=== PATIENT | male | born 1935 | race Caucasian/White ===

== ENCOUNTER → 2017-11-11 | Outpatient (CLI) | payer MEDICARE ==
[~2017-11-11] MED LIST: AMARYL1 MG PO; AVODART0.5 MG PO; BENTYL20 MG PO; CELEBREX 200 M200 MG PO; LOVASTAT20 PO; LOVENOX PO; NEPHROCAPS SOFT1 CAP PO; NORCO 5-325 TA1 EACH PO; PRILOSEC; PRINZIDE 20-251 EACH PO; TRICOR; TRICOR145 MG PO; VICODIN 5-5001 EACH PO; VITCB500GO PO; ZOFRAN ODT4 MG PO
== END ==
LOC: M.RAD 11:36
DX: M47.812 Spondylosis without myelopathy or radiculopathy, cervical region (principal); M25.78 Osteophyte, vertebrae; M40.294 Other kyphosis, thoracic region; M46.92 Unspecified inflammatory spondylopathy, cervical region; I10 Essential (primary) hypertension; E78.5 Hyperlipidemia, unspecified; Z88.0 Allergy status to penicillin

== ENCOUNTER → 2017-11-18 | Outpatient (CLI) | payer MEDICARE | LOC: M.MRI 12:52 | DX: M47.22 Other spondylosis with radiculopathy, cervical region (principal); M48.02 Spinal stenosis, cervical region; M50.122 Cervical disc disorder at C5-C6 level with radiculopathy; I10 Essential (primary) hypertension; E78.5 Hyperlipidemia, unspecified; E11.9 Type 2 diabetes mellitus without complications; Z96.652 Presence of left artificial knee joint; Z88.0 Allergy status to penicillin ==

== ENCOUNTER → 2019-03-04 | Outpatient (CLI) | payer MEDICARE | LOC: M.ULTRA 10:04 | DX: R30.9 Painful micturition, unspecified (principal); Z90.49 Acquired absence of other specified parts of digestive tract; N40.1 Benign prostatic hyperplasia with lower urinary tract symptoms ==

== ENCOUNTER 2020-05-02 16:31 | Inpatient (IN) | payer MEDICARE ==
[~2020-05-02] VITALS: Ht 172.7 cm; Wt 97.1 kg
[2020-05-02 16:40] VITALS: BP 170/92
[2020-05-02] MEDS ORDERED: MELOXICAM15 MG PO (16:46)
[2020-05-02] MEDS ORDERED: PRANDIN1 MG PO (16:46)
[2020-05-02] MEDS ORDERED: NORVASC 2.5 MG2.5 M1 PO (16:47)
[2020-05-02] MEDS ORDERED: LISINOPRIL10 MG PO (16:47)
[2020-05-02] MEDS ORDERED: TOPROL XL50 MG PO (16:47)
--- NOTE | 2020-05-02 16:54 | NUR ---
DAUGHTER CINTIA CALLED TO CHECK ON PATIENT. GAVE HER UP DATE AND SHE STATED SHE WILL CALL BACK IN AN HOUR.
[2020-05-02 17:02] LABS: HEMATOCRIT 37.6 % (42.0-52.0); HEMOGLOBIN 12.5 gm/dL (14.0-18.0); MCH 30.2 pg (26.0-34.0); MCHC 33.2 g/dL (28.0-37.0); MCV 90.9 fL (80.0-100.0); MPV 8.1 fl. (7.2-11.1); NUCLEATED RBCS 0 /100WBC; PLATELET COUNT* 169 thou/uL (150-400); RBC 4.14 mil/uL (4.50-6.00); RDW-CV 14.1 % (10.5-14.5); WBC 15.9 thou/uL (4.0-11.0)
[2020-05-02 17:11] LABS: CREATININE 1.3 mg/dL (0.6-1.3); POTASSIUM 3.4 mmol/L (3.5-5.1)
[2020-05-02 17:11] LABS: URINE BILIRUBIN NEGATIVE (Negative); URINE BLOOD 1+ (Negative); URINE CLARITY CLEAR; URINE COLOR YELLOW; URINE GLUCOSE-RANDOM 3+ (Negative); URINE KETONES 1+ (Negative); URINE LEUKOCYTES-REFLEX NEGATIVE (Negative); URINE NITRITE-REFLEX NEGATIVE (Negative); URINE PROTEIN 1+ (Negative); URINE SPECIFIC GRAVITY >= 1.030 (1.005-1.030); URINE UROBILINOGEN 0.2 E.U./dl (0.2-1.0)
[2020-05-02 17:22] LABS: ALBUMIN 3.5 g/dL (3.4-5.0); TOTAL BILIRUBIN 0.6 mg/dL (<0.1-1.0); TOTAL PROTEIN 7.4 g/dL (6.4-8.2)
[2020-05-02 17:33] LABS: AMORPHOUS URATES Few /LPF (None Seen); BACTERIA-REFLEX 1-9 Few /HPF (None Seen); FINE GRANULAR CASTS 0-3 Few /LPF (None Seen); HYALINE CASTS 4-10 Moderate /LPF (None Seen); SQUAMOUS 0-3 Few /LPF (0-3)
[2020-05-02 17:34] LABS: URINE RBC 3-10 Few /HPF (0-2); URINE WBC-REFLEX 0-5 Rare /HPF (0-5)
[2020-05-02 17:43] LABS: ABSOLUTE LYMPHOCYTES 0.5 thou/uL (0.8-5.3); ABSOLUTE MONOCYTES 1.4 thou/uL (0.0-1.2)
[2020-05-02 17:44] LABS: OVALOCYTES Occasional; PLATELET ESTIMATE ADEQUATE
--- NOTE | 2020-05-02 18:35 | NUR ---
TALKED TO PT'S DAUGHTER CINTIA AGAIN. PT WANTS HER TO TAKE CARE OF HIS CAT AND BRING UP HIS PHONE CLIENT SUCCESS MANAGER. CINTIA NOTIFIED OF PT'S WISHES.
[2020-05-02 19:58] VITALS: BP 147/74
[2020-05-02 20:00] VITALS: BP 125/79
[2020-05-03] VITALS: BP 149/70
[2020-05-03 04:00] VITALS: BP 166/72
[2020-05-03 04:16] LABS: HEMATOCRIT 31.1 % (42.0-52.0); HEMOGLOBIN 10.7 gm/dL (14.0-18.0); MCH 30.8 pg (26.0-34.0); MCHC 34.5 g/dL (28.0-37.0); MCV 89.3 fL (80.0-100.0); MPV 8.1 fl. (7.2-11.1); RBC 3.48 mil/uL (4.50-6.00); RDW-CV 13.8 % (10.5-14.5); WBC 11.8 thou/uL (4.0-11.0)
[2020-05-03 04:21] LABS: CALCIUM 9.1 mg/dL (8.5-10.1); CREATININE 0.8 mg/dL (0.6-1.3); MAGNESIUM 1.8 mg/dL (1.8-2.4); POTASSIUM 3.3 mmol/L (3.5-5.1)
[2020-05-03 06:14] LABS: INFLUENZA A ANTIGEN Negative (Negative); INFLUENZA B ANTIGEN Negative (Negative)
--- NOTE | 2020-05-03 09:55 | NUR ---
CM SPOKE TO THE PT TO DISCUSS CM ASSESSMENT. PT A&O, AND NORMALLY INDEPENDENT WITH ADL'S. PT RESIDES AT HOME ALONE. PT INFORMS THAT HIS DTRS LIVE NEARBY AND ARE ABLE TO ASSIST HIM IF NEEDED. PT USES A WALKER FOR MOBILITY, BUT ALSO OWNS A POWER WHEELCHAIR AT TIMES INSIDE THE HOME. PT HAS 0 HX OF HH OR SNF. PT INFORMS THAT HE HAS PAST HX OF INPT ARU HERE AT [facility]. CM WILL REMAIN AVAILABLE TO ASSIST AND FOLLOW NEEDED.
[2020-05-03 11:50] VITALS: BP 140/72
--- NOTE | 2020-05-03 14:26 | EKG ---
[place] [address] ELECTROCARDIOGRAM REPORT Name: JENISE RAMEY Room: [address] M.R.#: [id number] Admission: 05/02/20 Attend Phys: Abdulkadir Du, Discharge: Date of : 39 Date of Service: 05/02/20 1643 Report #: [id number] THIS REPORT FOR: //name// [facility] ED Test Date: 2020-05-02 Test Time: 16:43:15 Pat Name: JENISE RAMEY Department: Room: [facility] Gender: M Broom Builder: GREGORY : 1935 Requested By: Elan Cheney Order Number: [id number] MD: Shakeel Williamson Measurements Intervals [place] Rate: 106 P: 38 OR: 196 QRS: -35 QRSD: 96 T: 7 QT: 344 QTc: 457 Interpretive Statements Sinus tachycardia Left axis deviation Abnormal R-wave progression, late transition Baseline wander in lead(s) V2 Compared to ECG 10/19/2009 21:40:45 Left-axis deviation now present Sinus bradycardia no longer present Electronically Signed On 05-03-2020 14:26:43 NAILING MACHINE FEEDER by Shakeel Williamson [email or web address] <ELECTRONICALLY SIGNED> By: Shakeel Williamson MD, [facility] 05/03/20 1426 1643 164 Shakeel Williamson MD, [facility] /EPI
--- NOTE | 2020-05-03 18:24 | NUR ---
PT TRANSFERED FROM 219 TO ROOM 312 VIA W/C AND TECH. ALL BELONGINGS SENT WITH HIM. LUNGS DIMINISHED, HEART TONES REGULAR, EDEMA NOTED IN LOWER LEGS AND FEET. LAST BM TODAY. VOIDING PER URNIAL CLEAR YELLOW URINE. BRUISING NOTED ON SKIN OTHER RETANA INTACT. NO C/O PAIN. CALL LIGHT WITHIN REACH. WILL CONTINUED TO MONITOR.
[2020-05-03 20:00] VITALS: BP 145/67
[2020-05-04 04:30] VITALS: BP 163/86
[2020-05-04 05:58] LABS: MAGNESIUM 1.8 mg/dL (1.8-2.4); POTASSIUM 3.9 mmol/L (3.5-5.1)
--- NOTE | 2020-05-04 07:40 | NUR ---
Alert and oriented x 4. He is very hard of hearing and wears bilat hearing aides. He is voiding adequately per urinal. Vitals are stable. O2 sat on roomair 92-93%. He denies pain. Mg+ and K+ replaced per electrolyte protocol. This am Mg+ was unchanged. Another dose given this am and dayshift notified to follow up with protocol. He has slept well.
[2020-05-04 07:53] VITALS: BP 152/73
[2020-05-04 17:30] VITALS: BP 157/72
--- NOTE | 2020-05-04 18:51 | NUR ---
PATIENT CURRENTLY LYING IN BED RESTING, HAS DENIED PAIN/NAUSEA DURING SHIFT WITH THE EXCEPTION OF BEING NAUSEOUS AT BEGINNING OF SHIFT WHICH WAS RELIEVED WITH ADMINISTRATION OF ZOFRAN. CALL LIGHT AND FREQUENTLY USED ITEMS WITHIN REACH.
[2020-05-04 20:06] VITALS: BP 159/72
--- NOTE | 2020-05-05 04:27 | NUR ---
PT A&O, VSS ON ROOM AIR, PT UP WITH SBA, NO C/O PAIN THIS SHIFT, PT SLEEPING WELL, HOURLY ROUNDINGS COMPLETE, WILL CONTINUE TO MONITOR.
[2020-05-05] MEDS ORDERED: ZOFRAN ODT4 MG PO (08:11)
[2020-05-05] MEDS ORDERED: OMEPRAZOLE40 MG PO (08:11)
[2020-05-05] MEDS ORDERED: ASA81BEC PO (08:11)
[2020-05-05 08:20] VITALS: BP 168/75
--- NOTE | 2020-05-05 12:00 | NUR ---
PT.TO DISCHARGE HOME TODAY WITH HOME HEALTH. HE DID NOT HAVE A PREFERENCE OF AGENCIES. VENDOR CHOICE FORM SIGNED. HE WAS VERY HARD OF HEARING. FAXED REFERRAL AND DISCHARGE SUMMARY TO [facility] [phone]. [facility] CALLED WITH ACCEPTANCE OF PT. PT.WANTING 'COVID SHOT' BEFORE HE LEFT. EXPLAINED THE HOSPITAL DID NOT HAVE THE VACCINES YET. TO KEEP CHECKING WITH HIS DR. HE SAID HIS DAUGHTER WILL PICK HIM UP THIS AFTERNOON.
[2020-05-05 12:42] VITALS: BP 168/75
--- NOTE | 2020-05-05 16:18 | NUR ---
PATIENT DISCHARGED FROM UNIT AT 1515. ALERT AND ORIENTED X 4. VITAL SIGNS STABLE ON ROOM AIR. UP WITH ASSISTANCE. IV DISCONTINUED. DENIES PAIN AND NAUSEA AT THIS TIME. DISCHARGE INSTRUCTIONS AND MEDICATION INFORMATION GIVEN TO PATIENT. LEFT WITH ALL BELONGINGS. PATIENT LEFT WITH DAUGHTER VIA CAR.
== END 2020-05-05 15:15 | disposition home health service (06) | DRG 872 ==
LOC: M.ERS 16:31 → M.TBA-ER 17:55 → M.2W 17:55 → M.3W 05-03 16:52
PROVIDERS: Family Medicine; ADMIT Internal Medicine; ATTEND Internal Medicine
DX: A41.9 Sepsis, unspecified organism (principal); M48.55XA Collapsed vertebra, not elsewhere classified, thoracolumbar region, initial encounter for fracture; Z20.822 Contact with and (suspected) exposure to COVID-19; M19.90 Unspecified osteoarthritis, unspecified site; I10 Essential (primary) hypertension; K21.9 Gastro-esophageal reflux disease without esophagitis; R31.9 Hematuria, unspecified; E87.6 Hypokalemia; I25.10 Atherosclerotic heart disease of native coronary artery without angina pectoris; E11.51 Type 2 diabetes mellitus with diabetic peripheral angiopathy without gangrene; M47.895 Other spondylosis, thoracolumbar region; A08.4 Viral intestinal infection, unspecified; Z23 Encounter for immunization; Z98.52 Vasectomy status; Z88.0 Allergy status to penicillin; Z79.899 Other long term (current) drug therapy

== ENCOUNTER → 2020-05-12 | Outpatient (CLI) | payer MEDICARE ==
[~2020-05-12] MED LIST changes: +ASA81BEC PO; +LISINOPRIL10 MG PO; +MELOXICAM15 MG PO; +NORVASC 2.5 MG2.5 M1 PO; +OMEPRAZOLE40 MG PO; +PRANDIN1 MG PO; +TOPROL XL50 MG PO
== END ==
LOC: M.ULTRA 10:30
PROVIDERS: ATTEND Family Medicine
DX: M79.89 Other specified soft tissue disorders (principal)

== ENCOUNTER → 2020-05-25 | Outpatient (CLI) | payer MEDICARE | LOC: M.CT 12:44 | PROVIDERS: ATTEND Family Medicine | DX: L03.115 Cellulitis of right lower limb (principal); M79.89 Other specified soft tissue disorders; M25.774 Osteophyte, right foot ==